=== PATIENT | female | born 1935 | race Caucasian/White ===

== ENCOUNTER 2020-06-04 07:42 | Emergency (ER) | payer MEDICARE ==
[~2020-06-04] VITALS: Ht 160 cm; Wt 86.2 kg
[2020-06-04 07:42] VITALS: BP_SYST 198
[2020-06-04] MEDS ORDERED: KETOROLAC TROMETHAMINE 30 MG VIAL IVP ONE (08:00)
[2020-06-04] MEDS ORDERED: LORazepam 2 MG/ML VIAL IVP ONE (08:00)
[2020-06-04 12:12] VITALS: BP_SYST 198
== END 2020-06-04 12:12 | disposition home or self-care (01) ==
LOC: SED 07:42
DX: S02.2XXA Fracture of nasal bones, initial encounter for closed fracture (principal); S63.8X1A Sprain of other part of right wrist and hand, initial encounter; S63.8X2A Sprain of other part of left wrist and hand, initial encounter; W18.09XA Striking against other object with subsequent fall, initial encounter; Y93.89 Activity, other specified; Y92.89 Other specified places as the place of occurrence of the external cause; Y99.8 Other external cause status
CPT/HCPCS: 70450; 70486; 72125; 73120; 96374; 96375; 99285; J1885; J2060

== ENCOUNTER 2022-08-08 14:21 | Emergency (ER) | payer MEDICARE ==
[~2022-08-08] VITALS: Ht 149.9 cm; Wt 47.6 kg
--- NOTE | 2022-08-08 14:28 | NUR ---
Patient to ER bed 01 to gown for evaluation. Side rails up.
--- NOTE | 2022-08-08 14:29 | NUR ---
Report given to Harpreet WOOD
--- NOTE | 2022-08-08 14:29 | NUR ---
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
[2022-08-08 14:30] VITALS: BP_SYST 104
--- NOTE | 2022-08-08 14:42 | NUR ---
URINE COLLECTED BY IN AND OUT.
--- NOTE | 2022-08-08 14:45 | NUR ---
LAB AT BEDSIDE.
--- NOTE | 2022-08-08 14:46 | NUR ---
COVID SWAB COLLECTED AT BEDSIDE AND SENT TO LAB
--- NOTE | 2022-08-08 14:48 | NUR ---
PATIENT TAKEN TO CT SCAN.
[2022-08-08 15:22] LABS: BILIRUBIN,URINE NEGATIVE (NEGATIVE); BLOOD, URINE NEGATIVE (NEGATIVE); CLARITY/URINE CLEAR (CLEAR); COLOR,URINE YELLOW (YELLOW); GLUCOSE,URINE NEGATIVE (NEGATIVE); KETONES,URINE NEGATIVE (NEGATIVE); LEUKOCYTE ESTERASE ,URINE NEGATIVE (NEGATIVE); NITRITE, URINE NEGATIVE (NEGATIVE); PROTEIN URINE 2+ (NEGATIVE); UROBILINOGEN,URINE 0.2 (0.2-1.0)
[2022-08-08 15:35] LABS: BARBITURATE, URINE NEGATIVE (NEG <=200); BENZODIAZEPINE, URINE NEGATIVE (NEG <=150); CANNABINOID, URINE NEGATIVE (NEG <=50); COCAINE, URINE NEGATIVE (NEG <=150); METHAMPHETAMINES SCREEN,URINE NEGATIVE (NEG <=500); OPIATE, URINE NEGATIVE (NEG <=100); PHENCYCLIDINE SCREEN,URINE NEGATIVE (NEG <=25); UR TRICYCLIC ANTIDEPRESSANTS NEGATIVE (NEG <=300); URINE AMPHETAMINE NEGATIVE (NEG <=500); URINE METHADONE NEGATIVE (NEG <=200); URINE OXYCODONE SCREEN NEGATIVE (NEG <=100); URINE PROPOXYPHENE SCREEN NEGATIVE (NEG <=300)
[2022-08-08 15:39] LABS: ANION GAP 4 (5-15); BASOPHILS % (AUTO) 0.1 % (0.0-2.0); CHLORIDE 105 mmol/L (98-107); CREATININE 1.27 mg/dL (0.55-1.30); EOSINOPHILS # (AUTO) 0.1 K/uL (0.0-0.4); EOSINOPHILS % (AUTO) 1.3 % (0.0-4.0); GLUCOSE 182 mg/dL (70-99); HEMATOCRIT 32.9 % (36-48); HEMOGLOBIN 11.3 g/dL (12.0-16.0); LYMPHOCYTES # (AUTO) 2.3 K/uL (1.0-5.5); LYMPHOCYTES % (AUTO) 33.2 % (20.5-51.5); MEAN CORPUSCULAR HEMOGLOBIN 31 pg (27-31); MEAN CORPUSCULAR HGB CONC 34 % (32-36); MEAN CORPUSCULAR VOLUME 91 fL (79.0-98.0); MONOCYTES # (AUTO) 0.6 K/uL (0.0-1.0); MONOCYTES % (AUTO) 8.4 % (1.7-9.3); NEUTROPHILS # (AUTO) 3.9 K/uL (1.8-7.7); PLATELET COUNT (AUTO) 146 K/uL (130-430); RED BLOOD CELL COUNT(AUTO) 3.61 MIL/uL (4.2-6.2); RED CELL DISTRIBUTION WIDTH 13.7 % (9.0-15.0); UREA NITROGEN, BLOOD 39 mg/dL (8-21); WHITE BLOOD COUNT (AUTO) 6.8 K/uL (4.8-10.8)
[2022-08-08 15:42] LABS: RBC,URINE 0-3 /HPF (0-3); WBC,URINE 0-3 /HPF (0-3)
[2022-08-08 15:43] LABS: BACTERIA,URINE None Seen /HPF (None Seen); MUCUS,URINE None Seen /LPF (None Seen)
[2022-08-08 15:47] LABS: ACETAMINOPHEN 7 ug/mL (1-30); ALANINE AMINOTRANSFERASE 48 U/L (12-78); ALBUMIN 2.7 g/dL (3.4-4.8); ASPARTATE AMINOTRANSFERASE 43 U/L (10-37); C-REACTIVE PROTEIN QUANT 4.8 mg/dL (0-0.5); TOTAL BILIRUBIN 0.5 mg/dL (0.0-1.0)
[2022-08-08 15:59] LABS: ALCOHOL, BLOOD < 3 mg/dL (<10)
--- NOTE | 2022-08-08 16:01 | NUR ---
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
--- NOTE | 2022-08-08 16:16 | NUR ---
oralia collected and sent to lab
--- NOTE | 2022-08-08 16:44 | NUR ---
ALL RESULT BACK, ED REASSESS PATIENT WITH FAMILY MEMBER AT BEDSIDE, AND D/C HOME WITH INSTRUCTION.
--- NOTE | 2022-08-08 17:01 | NUR ---
ALL RESULT BACK EDP REASSESS PATIENT AND D/C HOME WITH INSTRUCTION.
--- NOTE | 2022-08-08 17:02 | NUR ---
Patient given written and verbal discharge instructions and verbalizes understanding. ER MD discussed with patient the results and treatment provided. Patient in stable condition. ID arm band removed. IV catheter removed intact and dressing applied, no active bleeding. Rx of given. Patient educated on pain management and to follow up with PMD. Pain Scale 0. Opportunity for questions provided and answered. Medication side effect fact sheet provided.
[2022-08-08 20:31] LABS: ACETONE, SERUM NEGATIVE (NEGATIVE)
== END 2022-08-08 17:02 | disposition home or self-care (01) ==
LOC: SED 14:21
DX: R41.82 Altered mental status, unspecified (principal); Z79.899 Other long term (current) drug therapy; Z20.822 Contact with and (suspected) exposure to COVID-19
CPT/HCPCS: 99285; 70450; 71045; 87426; 80307; 80053; 82009; 82140; 82550; 83880; 85025; 86140; 87040; 84484; 36415; 76376; 83605; 81000; G0482; G0480; G0481